=== PATIENT | female | born 2005 | race Two or more races ===

== ENCOUNTER 2025-07-25 08:28 | Outpatient (CLI) | payer OTHER ==
[2025-07-25 09:42] LABS: Hematocrit 43.5 % (36.0-46.0); Hemoglobin 15.1 g/dL (12.2-16.2); Mean Corpuscular Volume 88.6 fL (80.0-100.0); Nucleated Red Blood Cells % 0.1 %
[2025-07-25 09:43] LABS: Mean Corpuscular Hemoglobin 30.7 pg (28.0-32.0)
[2025-07-25 10:39] LABS: Alanine Aminotransferase 12 U/L (7-40); Alkaline Phosphatase 70 U/L (46-116); Anion Gap 8 (5-15); BUN/Creatinine Ratio 11.9 (10.0-20.0); Blood Urea Nitrogen 13 mg/dL (9-23); Calcium 9.8 mg/dL (8.7-10.4); Carbon Dioxide 27 mmol/L (20-31); Chloride 106 mmol/L (98-107); Glucose 87 mg/dL (74-106); Potassium 4.4 mmol/L (3.5-5.1); Sodium 141 mmol/L (136-145); Total Protein 7.3 g/dL (5.7-8.2); Triglycerides 60 mg/dL (< 150)
[2025-07-25 10:40] LABS: Cholesterol 129 mg/dL (< 200)
[2025-07-25 10:41] LABS: Bilirubin, Total 0.6 mg/dL (0.2-1.0); HDL Cholesterol 50 mg/dL (40-59)
[2025-07-25 10:44] LABS: Albumin 4.9 g/dL (3.2-4.8)
== END 2025-07-25 17:00 | disposition home or self-care (01) ==
LOC: LAB 08:28
PROVIDERS: ATTEND Nurse Practitioner Family
DX: I10 Essential (primary) hypertension (principal); E66.9 Obesity, unspecified; Z00.01 Encounter for general adult medical examination with abnormal findings
CPT/HCPCS: 36415; 80053; 80061; 82306; 84443; 85025